=== PATIENT | male | born 1960 | race Caucasian/White ===

== ENCOUNTER 2022-12-17 05:27 | Day surgery (SDC) | payer MEDICAID ==
[2022-12-17] MEDS ORDERED: Albuterol/Ipratropium 3.0-0.5 MG/3 ML Neb Soln NEB ONE (06:00)
[2022-12-17] MEDS ORDERED: Dextrose 5%-Lactated Ringers 1,000 ML IV SCH (06:00)
[2022-12-17] MEDS ORDERED: Bupivacaine 0.5% 50 ML MDV ONE (06:37)
[2022-12-17] MEDS ORDERED: Lidocaine 1% with EPINEPHrine 1:100,000 50 ML MDV ONE (06:37)
[2022-12-17] MEDS ORDERED: Bupivacaine 0.5%/EPINEPHrine 1:200,000 50 ML MDV ONE (06:39)
[2022-12-17] MEDS ORDERED: fentaNYL 250 MCG/5 ML SDV ONE (07:07)
[2022-12-17] MEDS ORDERED: Rocuronium 50 MG/5 ML Vial ONE (07:08)
[2022-12-17] MEDS ORDERED: Propofol 200 MG/20 ML SDV ONE (07:08)
[2022-12-17] MEDS ORDERED: Dexamethasone 4 MG/ML SDV ONE (07:08)
[2022-12-17] MEDS ORDERED: Glycopyrrolate 0.2 MG/ML 5 ML MDV ONE (07:08)
[2022-12-17] MEDS ORDERED: Succinylcholine 200 MG/10 ML MDV ONE (07:08)
[2022-12-17] MEDS ORDERED: Ondansetron 4 MG/2 ML SDV ONE (07:08)
[2022-12-17] MEDS ORDERED: Neostigmine Methylsulfate 1 MG/ML 5 ML Syringe ONE (07:08)
[2022-12-17] MEDS ORDERED: ceFAZolin 2 GM in Premix Bag 1 BAG IV ONE (07:15)
[2022-12-17] MEDS ORDERED: Ketorolac 30 MG/ML SDV ONE (08:39)
[2022-12-17] MEDS ORDERED: oxyCODONE 5 MG Tab PO PRN (09:35)
[2022-12-17] MEDS ORDERED: Ibuprofen 600 MG Tab PO PRN (11:36)
== END 2022-12-17 13:10 | disposition home or self-care (01) ==
LOC: JP.SDS 05:27
PROVIDERS: ATTEND Surgery
DX: K40.30 Unilateral inguinal hernia, with obstruction, without gangrene, not specified as recurrent (principal); F32.A Depression, unspecified; F41.9 Anxiety disorder, unspecified; G25.81 Restless legs syndrome; J45.909 Unspecified asthma, uncomplicated; Z79.899 Other long term (current) drug therapy; Z88.5 Allergy status to narcotic agent; Z88.8 Allergy status to other drugs, medicaments and biological substances
CPT/HCPCS: 49507; 64772; 88302; 94640; A9270; C1713; C1781; J0131; J0330; J0690; J1100; J1885; J2405; J2704; J2710; J3010; J3490; J7121; J7620

== ENCOUNTER 2023-04-15 08:03 | Day surgery (SDC) | payer MEDICAID, OTHER ==
[~2023-04-15 08:03] MED LIST: Bupivacaine 0.5% 50 ML MDV ONE; Lidocaine 1% with EPINEPHrine 1:100,000 50 ML MDV ONE; Midazolam 1 MG/ML 2 ML SDV ONE; Propofol 200 MG/20 ML SDV ONE; fentaNYL 50 MCG/ML SDV ONE
[2023-04-15] MEDS ORDERED: Sodium Chloride 0.9% 1,000 ML IV SCH (08:30)
[2023-04-15] MEDS ORDERED: ceFAZolin 2 GM in Sodium Chloride 0.9% 50 ML IV ONE (09:00)
== END 2023-04-15 11:30 | disposition home or self-care (01) ==
LOC: JP.SDS 08:03
PROVIDERS: ATTEND Surgery
DX: N99.841 Postprocedural hematoma of a genitourinary system organ or structure following other procedure (principal); J45.909 Unspecified asthma, uncomplicated; R41.82 Altered mental status, unspecified; F41.9 Anxiety disorder, unspecified; F32.A Depression, unspecified; Z88.8 Allergy status to other drugs, medicaments and biological substances; Z79.899 Other long term (current) drug therapy; Z91.048 Other nonmedicinal substance allergy status
CPT/HCPCS: 10140; 87070; 87075; 87205; J0690; J2250; J2704; J3010; J3490; J7030